=== PATIENT | male | born 1935 | race African-American/Black ===

== ENCOUNTER 2021-08-02 15:00 | Inpatient (IN) | payer BC ==
[~2021-08-02] VITALS: Ht 157.5 cm; Wt 39.9 kg
[2021-08-02] MEDS ORDERED: SODIUM CHLORIDE 0.9% 1,000 ML IV ONE (15:30)
[2021-08-02 15:49] LABS: BASOPHILS % 0.4 % (0.0-2.0); EOSINOPHILS % 0.3 % (0.0-5.0); HEMATOCRIT. 31.4 % (42.0-52.0); HEMOGLOBIN. 10.4 g/dL (14.0-18.0); LYMPHOCYTES % 15.3 % (20.0-50.0); MEAN CORPUSCULAR VOLUME 90.8 fL (80.0-94.0); MEAN PLATELET VOLUME 7.9 fl (7.4-10.4); MONOCYTES % 11.8 % (2.0-8.0); NEUTROPHILS % 72.2 % (40.0-76.0); PLATELET 142 x1000/uL (130-400); RED BLOOD CELL COUNT 3.45 mill/uL (4.7-6.1); RED CELL DISTRIBUTION WIDTH 15.3 % (11.6-14.6)
[2021-08-02 15:56] LABS: CHLORIDE 104 mEq/L (98-107)
[2021-08-02 15:59] LABS: ETHANOL BLOOD < 10 mg/dL
[2021-08-02 16:04] LABS: CREATINE KINASE 281 IU/L (39-308)
[2021-08-02] MEDS ORDERED: LORAZEPAM 2MG/ML CPJ IV ONE (17:00)
[2021-08-02 22:00] VITALS: BP 123/50
[2021-08-03] VITALS: BP 136/46
[2021-08-03 04:00] VITALS: BP 154/58
[2021-08-03] MEDS: LORAZEPAM 2MG/ML CPJ IV PRN ×3 (04:39→05:49)
[2021-08-03 08:00] VITALS: BP 100/62
[2021-08-03] MEDS ORDERED: PIOG15TA6 PO (09:54)
[2021-08-03] MEDS ORDERED: VALS40TA4 PO (09:54)
[2021-08-03] MEDS ORDERED: ATOR40TA70 PO (09:54)
[2021-08-03] MEDS ORDERED: WARF2.5T11 PO (09:54)
[2021-08-03] MEDS ORDERED: PRIL20 PO (09:54)
[2021-08-03 12:20] VITALS: BP 150/56
[2021-08-03 16:16] VITALS: BP 156/64
[2021-08-03] MEDS ORDERED: MAGNESIUM/ALUMINUM HYDROXIDE/SIMETHICONE 30ML UDC PO PRN (17:30)
[2021-08-03] MEDS ORDERED: ACETAMINOPHEN 325MG TABLET PO PRN (17:30)
[2021-08-03] MEDS ORDERED: DOCUSATE SODIUM 100MG CAPSULE PO PRN (17:30)
[2021-08-03] MEDS ORDERED: CLONIDINE 0.1MG TABLET PO PRN (17:30)
[2021-08-03] MEDS: ENOXAPARIN 30MG/0.3ML SYR SUBCUT SCH (18:50)
[2021-08-03 20:00] VITALS: BP 137/54
[2021-08-04] VITALS: BP 136/56
[2021-08-04 04:00] VITALS: BP 130/64
[2021-08-04 06:54] LABS: BASOPHILS % 0.4 % (0.0-2.0); EOSINOPHILS % 0.1 % (0.0-5.0); LYMPHOCYTES % 11.1 % (20.0-50.0); MEAN CORPUSCULAR HEMOGLOBIN 29.4 pg (28.0-32.0); MEAN PLATELET VOLUME 8.8 fl (7.4-10.4); MONOCYTES % 12.4 % (2.0-8.0); PLATELET 159 x1000/uL (130-400); RED BLOOD CELL COUNT 4.15 mill/uL (4.7-6.1); RED CELL DISTRIBUTION WIDTH 15.2 % (11.6-14.6)
[2021-08-04 07:03] LABS: CHLORIDE 103 mEq/L (98-107)
[2021-08-04 07:05] LABS: HEMATOCRIT. 37.4 % (42.0-52.0); HEMOGLOBIN. 12.2 g/dL (14.0-18.0)
[2021-08-04 07:15] LABS: PHOSPHORUS 2.5 mg/dL (2.5-4.9)
[2021-08-04 07:16] LABS: LDL CHOLESTEROL 87 mg/dL (5-100)
[2021-08-04 07:17] LABS: HDL CHOLESTEROL 88 mg/dL (40-59); T4 FREE 1.27 ng/dL (0.76-1.46)
[2021-08-04 07:55] VITALS: BP 102/74
[2021-08-04] MEDS: ENOXAPARIN 30MG/0.3ML SYR SUBCUT SCH (08:23)
[2021-08-04] MEDS: OMEPRAZOLE 20MG CAPSULE EXTENDED RELEASE PO SCH (08:23)
[2021-08-04 11:26] LABS: CLARITY URINE CLEAR (CLEAR); COLOR URINE YELLOW (YELLOW); KETONES URINE TRACE (NEGATIVE); LEUKOCYTE ESTERASE URINE NEGATIVE (NEGATIVE); NITRITE URINE NEGATIVE (NEGATIVE); OCCULT BLOOD URINE TRACE (NEGATIVE); PH URINE 7.5 (4.5-8.0); PROTEIN URINE NEGATIVE (NEGATIVE); SPECIFIC GRAVITY URINE 1.009 (1.005-1.030)
[2021-08-04 11:39] VITALS: BP 102/56
[2021-08-04 15:54] VITALS: BP 116/78
[2021-08-04] MEDS ORDERED: LORAZEPAM 2MG/ML CPJ IV PRN (19:15)
[2021-08-04 20:00] VITALS: BP 104/44
[2021-08-05] VITALS: BP 114/51
[2021-08-05 04:00] VITALS: BP 102/45
[2021-08-05 06:39] LABS: HEMOGLOBIN. 11.5 g/dL (14.0-18.0); MEAN CORPUSCULAR HEMOGLOBIN 30.4 pg (28.0-32.0); MEAN CORPUSCULAR VOLUME 89.6 fL (80.0-94.0); MEAN PLATELET VOLUME 8.8 fl (7.4-10.4); PLATELET 146 x1000/uL (130-400); RED BLOOD CELL COUNT 3.79 mill/uL (4.7-6.1); RED CELL DISTRIBUTION WIDTH 15.2 % (11.6-14.6)
[2021-08-05] MEDS: OMEPRAZOLE 20MG CAPSULE EXTENDED RELEASE PO SCH (06:40)
[2021-08-05 06:59] LABS: PHOSPHORUS 3.5 mg/dL (2.5-4.9)
[2021-08-05 07:06] LABS: VITAMIN B12 SERUM 1371 pg/mL (211-911)
[2021-08-05 08:00] VITALS: BP 96/49
[2021-08-05 10:17] LABS: *AMPHETAMINES SCREEN URINE NEGATIVE (NEGATIVE); *BARBITURATES SCREEN URINE NEGATIVE (NEGATIVE); *BENZODIAZEPINES SCREEN URINE NEGATIVE (NEGATIVE); *COCAINE SCREEN URINE NEGATIVE (NEGATIVE); METHADONE URINE SCREEN NEGATIVE (NEGATIVE); OPIATES URINE SCREEN NEGATIVE (NEGATIVE); PHENCYCLIDINE URINE SCREEN NEGATIVE (NEGATIVE)
[2021-08-05 10:18] LABS: CANNABINOID URINE SCREEN NEGATIVE (NEGATIVE)
[2021-08-05 12:00] VITALS: BP 129/53
[2021-08-05 16:00] VITALS: BP 116/49
[2021-08-05 16:05] VITALS: BP 116/49
[2021-08-05 16:57] LABS: PLATELET ESTIMATE NORMAL
== END 2021-08-05 17:07 | disposition home or self-care (01) | DRG 71 ==
LOC: ER 15:00 → EDBEDREQ 17:48 → EDBEDREQTM 17:48 → ENRESERV 20:23 → 6WST 21:59
PROVIDERS: ADMIT Internal Medicine; ATTEND Internal Medicine
DX: G93.41 Metabolic encephalopathy (principal); E44.0 Moderate protein-calorie malnutrition; D64.9 Anemia, unspecified; F03.90 Unspecified dementia, unspecified severity, without behavioral disturbance, psychotic disturbance, mood disturbance, and anxiety; I69.90 Unspecified sequelae of unspecified cerebrovascular disease
CPT/HCPCS: 36415; 70551; 80048; 80053; 80061; 80076; 80305; 80320; 81003; 82140; 82550; 82607; 82962; 83735; 84100; 84439; 84443; 84484; 85025; 93880; 93970; 95816; 97162; 99285; C1893; J1650; J2060; J7030; A4315; G0480

== ENCOUNTER 2021-08-23 18:34 | Emergency (ER) | payer BC ==
[~2021-08-23] VITALS: Ht 167.6 cm; Wt 62.0 kg
[~2021-08-23 18:34] MED LIST: ATOR40TA70 PO; PIOG15TA6 PO; PRIL20 PO; VALS40TA4 PO; WARF2.5T11 PO
[2021-08-23] MEDS ORDERED: TETANUS, DIPHTHERIA, PERTUSSIS VAC/PF 0.5ML (>10YR OLD) IM ONE (19:00)
[2021-08-23] MEDS ORDERED: BACITRACIN ZINC OINT UDPKT TOP ONE (19:00)
[2021-08-23 20:57] LABS: BASOPHILS % 0.6 % (0.0-2.0); EOSINOPHILS % 0.6 % (0.0-5.0); HEMATOCRIT. 30.2 % (42.0-52.0); HEMOGLOBIN. 9.8 g/dL (14.0-18.0); LYMPHOCYTES % 11.7 % (20.0-50.0); MEAN CORPUSCULAR HEMOGLOBIN 30.3 pg (28.0-32.0); MEAN CORPUSCULAR VOLUME 93.5 fL (80.0-94.0); MONOCYTES % 10.7 % (2.0-8.0); NEUTROPHILS % 76.4 % (40.0-76.0); PLATELET 163 x1000/uL (130-400); RED BLOOD CELL COUNT 3.23 mill/uL (4.7-6.1); RED CELL DISTRIBUTION WIDTH 16.6 % (11.6-14.6)
[2021-08-23 21:01] LABS: CHLORIDE 110 mEq/L (98-107)
[2021-08-23 22:24] VITALS: BP 133/62
== END 2021-08-23 22:26 | disposition home or self-care (01) ==
LOC: ER 18:34
DX: S01.01XA Laceration without foreign body of scalp, initial encounter (principal); R51.9 Headache, unspecified; W01.0XXA Fall on same level from slipping, tripping and stumbling without subsequent striking against object, initial encounter; Y93.01 Activity, walking, marching and hiking; Y92.89 Other specified places as the place of occurrence of the external cause; Y99.8 Other external cause status
CPT/HCPCS: 12002; 36415; 71045; 80053; 82962; 84484; 85025; 90471; 90715; 99285